=== PATIENT | female | born 1995 ===

== ENCOUNTER 2025-05-21 02:13 | Observation (INO) | payer OTHER ==
[~2025-05-21] VITALS: Ht 147.3 cm; Wt 92.0 kg
[~2025-05-21 02:13] MED LIST: ACET500 PO; ASPI81CH PO; CEPH500 PO; CLOP75 PO; DILT180 PO; ELIQUIS5 M2 PO; FOLI1 PO; LOSA25 PO; OXYC5 PO; SENN187 PO
[2025-05-21] MEDS ORDERED: Morphine Sulfate 4 MG/1 ML Injection IV ONE (02:35)
[2025-05-21 02:39] LABS: BASOPHILS ABSOLUTE AUTO 0.17 K/mm3 (0.00-0.23); BASOPHILS PERCENT AUTO 3 % (0-2); EOSINOPHILS ABSOLUTE AUTO 0.17 K/mm3 (0.00-0.68); EOSINOPHILS PERCENT AUTO 3 % (0-6); Hematocrit 34.4 % (33.0-51.0); Hemoglobin 12.1 g/dL (11.5-16.0); IMMATURE GRAN ABSOLUTE AUTO 0.02 K/mm3 (0.00-0.10); IMMATURE GRAN PERCENT AUTO 0 % (0-1); LYMPHOCYTES ABSOLUTE AUTO 2.75 K/mm3 (0.84-5.20); LYMPHOCYTES PERCENT AUTO 40 % (21-46); MONOCYTES PERCENT AUTO 7 % (4-13); Mean Corpuscular HGB 30.6 pg (26.0-34.0); Mean Corpuscular HGB Conc 35.2 g/dL (31.5-36.5); Mean Corpuscular Volume 87 fL (80-100); Mean Platelet Volume 9.9 fL (9.1-12.4); NEUTROPHILS ABSOLUTE AUTO 3.29 K/mm3 (1.96-9.15); NEUTROPHILS PERCENT AUTO 48 % (41-73); Platelet Count 360 K/mm3 (150-400); RDW Coefficient Variation 14.9 % (11.7-14.2); RDW Standard Deviation 47.5 fL (35.1-46.3); Red Blood Cell Count 3.95 M/mm3 (3.80-5.20)
[2025-05-21 02:52] LABS: Bun/Creatinine Ratio 8.8 (12.0-20.0); Calcium, Blood 8.6 mg/dL (8.5-10.1); Creatinine, Blood 0.68 mg/dL (0.40-1.00); Potassium, Blood 3.9 mmol/L (3.5-5.5)
[2025-05-21] MEDS ORDERED: LORazepam 2 MG/ML 1ML Injection IV ONE (04:25)
[2025-05-21 04:34] LABS: Base Excess Venous -2.9 mmol/L; Bicarbonate Venous 22.4 mmol/L (24.0-30.0); PCO2 Venous 33.5 mmHg (38-42); pH Blood Venous 7.42 (7.34-7.37)
[2025-05-21] MEDS ORDERED: HYDROmorphone HCl/Pf 1MG SYR IV ONE (04:35)
[2025-05-21] MEDS ORDERED: Ondansetron HCl 2 MG / ML 2ML Vial IV PRN (05:50)
[2025-05-21] MEDS ORDERED: NS 1,000 ML IV ONE (05:50)
[2025-05-21] MEDS ORDERED: ChlordiazePOXIDE 25 MG Cap PO PRN (05:50)
[2025-05-21] MEDS ORDERED: LORazepam 2 MG/ML 1ML Injection IV PRN (05:50)
[2025-05-21] MEDS ORDERED: FentaNYL Citrate 50 MCG/ML 2 ML Injection IV PRN (05:55)
[2025-05-21] MEDS ORDERED: Acetaminophen 325 MG TABLET PO PRN (05:55)
[2025-05-21] MEDS ORDERED: Azithromycin 500 MG in NS 250 ML IV SCH (06:07)
[2025-05-21] MEDS ORDERED: CefTRIAXone Sodium 1,000 MG in NS 100 ML IV SCH (06:08)
[2025-05-21 06:25] LABS: Alanine Aminotransfer (ALT/SGP 92 U/L (12-78); Albumin, Blood 3.6 g/dL (3.4-5.0); Albumin/Globulin Ratio 0.9 (0.8-1.8); Alk Phos 91 U/L (50-136); Aspartate Aminotrans (AST/SGOT 71 U/L (12-37); Bilirubin, Direct <0.1 mg/dL (0.0-0.3); Bilirubin, Indirect Unable to Calculate mg/dL (0.1-0.7); Bilirubin, Total 0.3 mg/dL (0.1-1.0); Total Protein, Blood 7.6 g/dL (6.4-8.2)
[2025-05-21 06:34] LABS: International Normalized Ratio 0.99; Prothrombin Time Results 10.9 Sec (9.7-11.5)
[2025-05-21] MEDS ORDERED: Heparin Sodium 5000 Units/ML 1ML MDV IV ONE ×3 (06:40→21:50)
[2025-05-21] MEDS ORDERED: Heparin Sodium,Porcine/0.5 NS 500 ML IV SCH (06:40)
[2025-05-21 07:06] LABS: Influenza A, PCR NEGATIVE (NEGATIVE); Influenza B, PCR NEGATIVE (NEGATIVE); Resp Syncytial Virus, PCR NEGATIVE (NEGATIVE); SARS-Cov-2 (COVID-19) PCR, MMC NEGATIVE (NEGATIVE)
[2025-05-21] MEDS ORDERED: Polyethylene Glycol 3350 17 gm PO PRN (08:35)
[2025-05-21] MEDS ORDERED: Thiamine HCl 100 MG Tab PO SCH (09:00)
[2025-05-21] MEDS ORDERED: Losartan Potassium 25 MG Tab PO SCH (09:00)
[2025-05-21] MEDS ORDERED: Diltiazem HCl 180 MG Cap.CD PO SCH (09:00)
[2025-05-21] MEDS ORDERED: Multivitamins 1 Tab PO SCH (09:00)
[2025-05-21 09:03] VITALS: BP 145/97
[2025-05-21 09:21] LABS: Source, Urine Clean Catch
[2025-05-21 09:34] LABS: Appearance, Urine Clear (Clear); Bilirubin, Urine Neg (Neg); Blood, Urine 2+ (Neg); Color, Urine Yellow (P-Yellow); Glucose Qualitative, Urine Neg (Neg); Ketones, Urine 1+ (Neg); Leukocyte Esterase, Urine 1+ (Neg); Nitrite, Urine Neg (Neg); Protein, Urine 2+ (Neg); Urobilinogen, Urine NORM (Normal)
[2025-05-21 09:35] LABS: Bacteria Few /hpf; Squamous Epithelial Cells Few /hpf (Few)
[2025-05-21 09:37] LABS: U Amphetamine Screen Not Detected; U Barbituate Screen Not Detected; U Benzodiazapine Screen DETECTED; U Buprenorphine Screen Not Detected; U Cannabinoids Screen DETECTED; U Cocaine Screen Not Detected; U Methadone Screen Not Detected; U Methamphetamine Screen Not Detected; U Opiates Screen DETECTED; U Oxycodone Screen Not Detected; U Phencyclidine Screen Not Detected
--- NOTE | 2025-05-21 10:04 | NUR ---
ADMIT TO PCU: PATIENT ALERT AND ORIENTED X4. UP WITH SBA TO PCU BED. COMPLAINS OF BILATERAL LOWER EXTREMITY PAIN WORSE ON LEFT. SWELLING TO LEFT LOWER EXREMITY WITH SLIGHT REDNESS. LEFT LOWER EXTREMITY TENDER TO TOUCH. BILATERAL POPLITEAL THROMBECTOMY SITES FROM PREVIOUS ADMISSION. LEFT POPLITEAL SITE RED AND PAINFUL, PICTURE PLACED IN CHART AND DR. BARTHOLOMEW TO BEDSIDE TO VISUALIZE. TELE SHOWING SR/ST WITH HR 90-110'S. BLOOD PRESSURE READING 145/97(111). COMPLAINS OF RIGHT SIDED CHEST PAIN WITH DEEP INHILATION, POINTING TO RIGHT LOWER LOBE OF LUNG. IV HEPARIN AND NS INFUSING PER EMAR. PPP. ON 1-2L NASAL CANNULA AT THIS TIME FOR COMFORT OF BREATHING, PATIENT SATING ABOVE 95%. LUNG SOUNDS DIMINISHED. EVEN AND UNLABORED RESPIRATIONS. DENIES COUGH/SPUTUM PRODUCTION. BOWEL TONES PRESENT THROUGHOUT. REGULAR DIET ORDERS IN PLACE. PATIENT DRINKING WATER AT THIS TIME. LAST BOWEL MOVEMENT THIS AM. COMPLAINS OF BURING SENSATION WHEN PEEING. CLEAN CATCH URINE SAMPLE SENT TO LAB. DR. BARTHOLOMEW TO BEDSIDE, THIS RNA ND GEODETIC SURVEYOR TECHNOLOGIST AT BEDSIDE FOR PROVIDER ROUNDING. THIS RN DISCUSSED HOME MEDICATIONS THAT HAVE BEEN RECONCILED AND PATIENT TAKING PLAVIX AT HOME FOR PRIOR ADMISSION STENT PLACEMENT. CALL LIGHT IN REACH, PATIENT DENIES NEEDS AT THIS TIME.
[2025-05-21] MEDS ORDERED: OxyCODONE HCL 5 MG TAB PO PRN (11:30)
[2025-05-21] MEDS ORDERED: Aspirin 81 MG Chew PO SCH (11:34)
[2025-05-21 11:49] VITALS: BP 145/91
[2025-05-21] MEDS ORDERED: Clopidogrel Bisulfate 75 MG Tab PO SCH (12:00)
[2025-05-21] MEDS ORDERED: Dose Adjust by Pharmacy XX STA (14:38)
[2025-05-21 15:07] VITALS: BP 124/83
--- NOTE | 2025-05-21 18:25 | NUR ---
SHIFT SUMMARY: PATIENT REMAINS ALERT AND ORIENTED. TELE SHOWING SR/ST WITH HR 80-110'S. SBP 120'S. LLE AND RIGHT POSTERIOR RIB PAIN IMPROVED THROUGHOUT SHIFT. CIWA SCORING 2-8. MEDICATED X1 WITH PO LIBRIUM. NORMAL SALINE INFUSION COMPLETED. HEPARIN GTT INFUSING. UP IND WITH STAND AND PIVOT TO BSC. TOLERATING PO DIET. SITTING IN BED AT THIS TIME PLAYING VIDEO GAMES.
[2025-05-21 20:04] VITALS: BP 138/91
[2025-05-21] MEDS ORDERED: Sennosides 8.6 MG Tab PO SCH (21:00)
[2025-05-22 00:33] VITALS: BP 106/63
[2025-05-22 04:02] VITALS: BP 132/95
[2025-05-22 04:51] LABS: BASOPHILS PERCENT AUTO 1 % (0-2); EOSINOPHILS ABSOLUTE AUTO 0.54 K/mm3 (0.00-0.68); EOSINOPHILS PERCENT AUTO 7 % (0-6); Hematocrit 33.8 % (33.0-51.0); Hemoglobin 11.8 g/dL (11.5-16.0); IMMATURE GRAN ABSOLUTE AUTO 0.02 K/mm3 (0.00-0.10); IMMATURE GRAN PERCENT AUTO 0 % (0-1); LYMPHOCYTES ABSOLUTE AUTO 3.38 K/mm3 (0.84-5.20); LYMPHOCYTES PERCENT AUTO 42 % (21-46); MONOCYTES ABSOLUTE AUTO 0.75 K/mm3 (0.16-1.47); MONOCYTES PERCENT AUTO 9 % (4-13); Mean Corpuscular HGB 31.1 pg (26.0-34.0); Mean Corpuscular HGB Conc 34.9 g/dL (31.5-36.5); Mean Corpuscular Volume 89 fL (80-100); Mean Platelet Volume 10.6 fL (9.1-12.4); NEUTROPHILS ABSOLUTE AUTO 3.27 K/mm3 (1.96-9.15); NEUTROPHILS PERCENT AUTO 41 % (41-73); Platelet Count 314 K/mm3 (150-400); RDW Coefficient Variation 14.8 % (11.7-14.2); RDW Standard Deviation 47.7 fL (35.1-46.3); White Blood Cell Count 8.06 K/mm3 (4.00-11.30)
[2025-05-22] MEDS ORDERED: Dose Adjust by Pharmacy XX STA (05:11)
[2025-05-22 05:23] LABS: Albumin, Blood 3.2 g/dL (3.4-5.0); Albumin/Globulin Ratio 0.9 (0.8-1.8); Bun/Creatinine Ratio 8.4 (12.0-20.0); Calcium, Blood 8.3 mg/dL (8.5-10.1); Creatinine, Blood 0.72 mg/dL (0.40-1.00); Globulin, Blood 3.7 g/dL (2.2-4.0); Potassium, Blood 3.9 mmol/L (3.5-5.5); Total Protein, Blood 6.9 g/dL (6.4-8.2)
[2025-05-22 07:22] VITALS: BP 94/83
--- NOTE | 2025-05-22 07:25 | NUR ---
SHIFT SUMMARY: PT IS A&OX4, PLEASANT AND COOPERATIVE WITH CARE. VSS ON RA. SR 70'S-90'S. C/O PAIN TO HER LLE, 07/09. MEDICATED WITH PRN MEDICATIONS PER EMAR. HEPARIN GTT TITRATED PER ORDER. PRN CIWA SCORE WAS 2, NO MEDICATIONS NEEDED THIS SHIFT. PT TOLERATING A REGULAR DIET. PT UP TO BSC INDEPENDENTLY. PT VOIDING ADEQUATE AMOUNTS OF FRAN COLORED URINE IN BSC. NO BM THIS SHIFT. PT REQUESTED BOWEL MEDICATIONS, MIRALAX ADMINISTERED. BED IN LOWEST POSITION, CALL LIGHT WITHIN REACH. CALLS APPROPRIATELY AND IS ABLE TO ADVOCATE NEEDS EFFECTIVELY.
[2025-05-22 08:11] VITALS: BP 91/79
[2025-05-22] MEDS ORDERED: Folic Acid 1 MG TAB PO SCH (09:00)
[2025-05-22] MEDS ORDERED: Apixaban 5 MG Tab PO SCH ×2 (10:00→21:00)
--- NOTE | 2025-05-22 10:36 | NUR ---
UPDATE DR. BARTHOLOMEW IN TO ROUND AND ORDERS TO DISCONTINUE HEPARIN GTT AND START PO ELIQUIS. PLAN FOR DISCHARGE THIS SHIFT. AWAITING DC ORDERS.
[2025-05-22] MEDS ORDERED: LEVFLO500 PO (11:08)
[2025-05-22] MEDS ORDERED: B-1100 M1 PO (11:08)
--- NOTE | 2025-05-22 12:10 | NUR ---
UPDATE DISCHARGE INSTRUCTIONS PROVIDED TO PT. PT EDUCATED ON MEDICATIONS. PT EDUCATED ON THE IMPORTANCE OF CONTINUING ELIQUIS AND NOT MISSING A DOSE. PT VERBALIZES UNDERSTANDING. ALL QUESTIONS ANSWERED. PT AWAITING RIDE
--- NOTE | 2025-05-22 12:21 | NUR ---
UPDATE PT TAKEN OUT VIA WC WITH ALL BELONGINGS
[2025-05-26] MEDS ORDERED: FOLI1 PO (14:07)
== END 2025-05-22 12:32 | disposition home or self-care (01) ==
LOC: ER 02:13 → ERHOLD 02:14 → PCU 09:00
PROVIDERS: Emergency Medicine; ADMIT Internal Medicine
DX: I26.99 Other pulmonary embolism without acute cor pulmonale (principal); F10.90 Alcohol use, unspecified, uncomplicated; I10 Essential (primary) hypertension; Z79.82 Long term (current) use of aspirin; Z79.899 Other long term (current) drug therapy
CPT/HCPCS: 0241U; 36415; 71045; 71260; 80048; 80053; 80076; 81001; 82803; 83735; 83880; 84145; 84484; 85025; 85520; 85610; 85730; 87086; 93005; 93010; 93971; 96365-59; 96366; 96366-59; 96367; 96367-59; 96368; 96375-59; 96376; 99285-25; A9270; G0378; J0456; J0696; J1171; J1644; J2060; J2270; J3010; J7050; Q9967

== ENCOUNTER 2025-05-25 14:05 | Inpatient (IN) | payer OTHER ==
[~2025-05-25] VITALS: Ht 147.3 cm; Wt 81.7 kg
[~2025-05-25 14:05] MED LIST changes: +B-1100 M1 PO; +LEVFLO500 PO
[2025-05-25 14:54] LABS: BASOPHILS ABSOLUTE AUTO 0.15 K/mm3 (0.00-0.23); BASOPHILS PERCENT AUTO 2 % (0-2); EOSINOPHILS ABSOLUTE AUTO 0.62 K/mm3 (0.00-0.68); EOSINOPHILS PERCENT AUTO 7 % (0-6); Hematocrit 35.5 % (33.0-51.0); Hemoglobin 12.7 g/dL (11.5-16.0); IMMATURE GRAN ABSOLUTE AUTO 0.02 K/mm3 (0.00-0.10); IMMATURE GRAN PERCENT AUTO 0 % (0-1); LYMPHOCYTES ABSOLUTE AUTO 4.04 K/mm3 (0.84-5.20); LYMPHOCYTES PERCENT AUTO 46 % (21-46); MONOCYTES ABSOLUTE AUTO 0.46 K/mm3 (0.16-1.47); MONOCYTES PERCENT AUTO 5 % (4-13); Mean Corpuscular HGB 31.1 pg (26.0-34.0); Mean Corpuscular HGB Conc 35.8 g/dL (31.5-36.5); Mean Corpuscular Volume 87 fL (80-100); Mean Platelet Volume 9.6 fL (9.1-12.4); NEUTROPHILS ABSOLUTE AUTO 3.53 K/mm3 (1.96-9.15); NEUTROPHILS PERCENT AUTO 40 % (41-73); Platelet Count 366 K/mm3 (150-400); RDW Coefficient Variation 15.1 % (11.7-14.2); RDW Standard Deviation 47.8 fL (35.1-46.3); Red Blood Cell Count 4.09 M/mm3 (3.80-5.20); White Blood Cell Count 8.82 K/mm3 (4.00-11.30)
[2025-05-25 15:29] LABS: Albumin, Blood 3.8 g/dL (3.4-5.0); Albumin/Globulin Ratio 0.8 (0.8-1.8); Bilirubin, Total 0.2 mg/dL (0.1-1.0); Bun/Creatinine Ratio 11.1 (12.0-20.0); Calcium, Blood 9.2 mg/dL (8.5-10.1); Creatinine, Blood 0.72 mg/dL (0.40-1.00); Globulin, Blood 4.6 g/dL (2.2-4.0); Potassium, Blood 4.1 mmol/L (3.5-5.5); Total Protein, Blood 8.4 g/dL (6.4-8.2)
[2025-05-25] MEDS ORDERED: HYDROcodone 5-APAP 325 TAB PO ONE (18:40)
[2025-05-25 19:36] LABS: International Normalized Ratio 0.97; Prothrombin Time Results 10.7 Sec (9.7-11.5)
[2025-05-25] MEDS ORDERED: Morphine Sulfate 4 MG/1 ML Injection IV ONE (21:35)
[2025-05-25] MEDS ORDERED: Ondansetron HCl 2 MG / ML 2ML Vial IV ONE (21:35)
[2025-05-25] MEDS ORDERED: Morphine Sulfate 4 MG/1 ML Injection IV PRN (22:50)
[2025-05-25] MEDS ORDERED: Acetaminophen 325 MG TABLET PO PRN (22:50)
[2025-05-25] MEDS ORDERED: Naloxone HCl 0.4MG / ML 1ML Vial IV PRN (22:50)
[2025-05-25] MEDS ORDERED: Ondansetron HCl 2 MG / ML 2ML Vial IV PRN (22:50)
[2025-05-25 23:03] LABS: Anti-Xa UFH, PHA Monitoring 0.33 IU/mL
[2025-05-25] MEDS ORDERED: Dose Adjust by Pharmacy XX STA (23:13)
[2025-05-25] MEDS ORDERED: Heparin Sodium,Porcine/0.5 NS 500 ML IV SCH (23:15)
[2025-05-25] MEDS ORDERED: Heparin Sodium 5000 Units/ML 1ML MDV IV ONE (23:15)
[2025-05-26] MEDS ORDERED: Lactated Ringer's 1,000 ML IV SCH
[2025-05-26 00:44] VITALS: BP 152/121
[2025-05-26] MEDS ORDERED: Morphine Sulfate 4 MG/1 ML Injection IV PRN (02:00)
[2025-05-26 03:39] VITALS: BP 154/97
--- NOTE | 2025-05-26 03:44 | NUR ---
ADMISSION NOTE @ 0036 REPORT RECEIVED BY THIS RN FROM COLLAR TURNER OPERATOR PENELOPE P @ APPROX 2350 PT ARRIVED TO PCU 16 @ APPROX 0030, PT SELF TRANSFERRED TO BED, HOLDING APPROPRIATE CONVERSATION, BP ELEVATED/PT STATES NORMAL/ OTHER VSS, PT REPORTING PAIN IN LUNGS AND LLE/MEDICATED PER EMAR, CALL LIGHT IN REACH, BED LOWEST POSITION
--- NOTE | 2025-05-26 06:22 | NUR ---
SHIFT SUMMARY PT IS A&O X4, ABLE TO MAKE NEEDS KNOWN, MOVING ALL EXTREMITIES WITH PURPOSE, OBEYS COMMANDS, EDUCATED TO CALL BEFORE AMBULATING. CONTINUOUS SPO2, SPO2 GREATER 90% ON RA, LUNGS SOUND CLEAR T/O WITH DIM BASES, PT DENIES SOB WHILE AT REST. CONTINUOUS TELE MONITORING, SINUS 110-130 S, PULSES PRESENT T/O, CAP REFILL WNL, PT DENEIS CHEST P/P T/O THIS SHIFT, BOWEL TONES PRESENT IN ALL 4Q, PT DENIES FEELINGS OF NAUSEA OR CONSTIPATION, PT NPO AT THIS TIME/EDUCATED PT ON THE IMPORTANCE OF BEING NPO DUE TO POSSIBILITY OF PROCEDURE. PT REPORTING PAIN IN HER LUNGS AND LLE/ DX DVT AND BILATERAL PE, MEDICATED PER ORDERS. BED LOWEST POSITION, CALL LIGHT IN REACH, AWAITING TO GIVE REPORT TO ONCOMING RN.
[2025-05-26 07:55] LABS: BASOPHILS ABSOLUTE AUTO 0.08 K/mm3 (0.00-0.23); BASOPHILS PERCENT AUTO 1 % (0-2); EOSINOPHILS ABSOLUTE AUTO 0.38 K/mm3 (0.00-0.68); EOSINOPHILS PERCENT AUTO 5 % (0-6); Hemoglobin 11.3 g/dL (11.5-16.0); IMMATURE GRAN ABSOLUTE AUTO 0.01 K/mm3 (0.00-0.10); IMMATURE GRAN PERCENT AUTO 0 % (0-1); LYMPHOCYTES ABSOLUTE AUTO 3.44 K/mm3 (0.84-5.20); LYMPHOCYTES PERCENT AUTO 44 % (21-46); MONOCYTES ABSOLUTE AUTO 0.62 K/mm3 (0.16-1.47); MONOCYTES PERCENT AUTO 8 % (4-13); Mean Corpuscular HGB 30.8 pg (26.0-34.0); Mean Corpuscular HGB Conc 35.3 g/dL (31.5-36.5); Mean Corpuscular Volume 87 fL (80-100); NEUTROPHILS ABSOLUTE AUTO 3.23 K/mm3 (1.96-9.15); NEUTROPHILS PERCENT AUTO 42 % (41-73); Platelet Count 307 K/mm3 (150-400); RDW Standard Deviation 47.9 fL (35.1-46.3); Red Blood Cell Count 3.67 M/mm3 (3.80-5.20); White Blood Cell Count 7.76 K/mm3 (4.00-11.30)
[2025-05-26 08:07] VITALS: BP 119/78
[2025-05-26] MEDS ORDERED: Dose Adjust by Pharmacy XX STA (08:22)
[2025-05-26] MEDS ORDERED: Heparin Sodium 5000 Units/ML 1ML MDV IV ONE (08:25)
[2025-05-26 08:29] LABS: Albumin, Blood 3.2 g/dL (3.4-5.0); Albumin/Globulin Ratio 0.8 (0.8-1.8); Bilirubin, Total 0.7 mg/dL (0.1-1.0); Bun/Creatinine Ratio 10.6 (12.0-20.0); Calcium, Blood 8.8 mg/dL (8.5-10.1); Creatinine, Blood 0.75 mg/dL (0.40-1.00); Globulin, Blood 3.9 g/dL (2.2-4.0); Magnesium, Blood 1.9 mg/dL (1.6-2.4); Total Protein, Blood 7.1 g/dL (6.4-8.2)
[2025-05-26] MEDS ORDERED: Docusate Sodium 100 MG Cap PO SCH (09:00)
--- NOTE | 2025-05-26 10:06 | NUR ---
am note this rn assumed care at 0700. vital signs stable. tele sinus rhythm 80s. pateint is alert and oriented x4.neuro is intact. perrla. patient reports pain in left lower leg and medicated per remar. patient has bilateral pedal pulses. patient left leg is swollen and tender to the touch and warm to touch. patient denies chest pain/pressure or shortness of breath. gi/gu within normal limits. lung sounds clear througout upper lobes and im lower lobes. see shift assessment for further detials.
[2025-05-26 11:16] VITALS: BP 131/83
--- NOTE | 2025-05-26 13:00 | NUR ---
in room Md Fernandez in to see patient and discussed the importance of taking eliquis and plavix. patient verbalized understanding and plan to set alarms to remember to take medications. Md Fernandez to call md zaidi to update that pateint is okay to discharge and follow up with [facility] as an out patient.
[2025-05-26] MEDS ORDERED: Apixaban 5 MG Tab PO ONE (13:50)
[2025-05-26] MEDS ORDERED: Percocet 5-3251 EACH PO (14:07)
--- NOTE | 2025-05-26 14:50 | NUR ---
discharge this rn went over discharge education and follow up appointments. patient verbalized understanding and the importance of taking her medications. pateint left with all belonings and in no distress
--- NOTE | 2025-05-30 00:03 | NUR ---
reviewed pt's info for records request from [facility] where pt is currently at.
== END 2025-05-26 14:47 | disposition home or self-care (01) | DRG 299 ==
LOC: ER 14:05 → PCU 22:45
PROVIDERS: Physician Assistant; Student in an Organized Health Care Education/Training Program; ADMIT Student in an Organized Health Care Education/Training Program
DX: I82.412 Acute embolism and thrombosis of left femoral vein (principal); I26.99 Other pulmonary embolism without acute cor pulmonale; J18.9 Pneumonia, unspecified organism; I82.432 Acute embolism and thrombosis of left popliteal vein; F10.20 Alcohol dependence, uncomplicated; I10 Essential (primary) hypertension; F17.210 Nicotine dependence, cigarettes, uncomplicated; Z88.0 Allergy status to penicillin; Z79.82 Long term (current) use of aspirin; Z79.01 Long term (current) use of anticoagulants; Z79.02 Long term (current) use of antithrombotics/antiplatelets; Z79.899 Other long term (current) drug therapy; Z91.148 Patient's other noncompliance with medication regimen for other reason
CPT/HCPCS: 36415; 71046; 71260; 80053; 82947; 83735; 83880; 84484; 84703; 85025; 85520; 85610; 85730; 93005; 93010; 93970; 94762; 96374-59; 96375-59; 99285-25; A9270; J1644; J2270; J2405; J7120; Q9967